=== PATIENT | female | born 1975 | race Caucasian/White ===

== ENCOUNTER 2016-07-06 14:42 | Emergency (ER) | payer OTHER ==
[~2016-07-06] VITALS: Ht 167.6 cm; Wt 66.0 kg
[~2016-07-06 14:42] MED LIST: ATARAX,VISTARIL50 MG PO; LIBRIUM; LIBRIUM25 MG PO; NAPROSYN500 MG PO; NEURONTIN100 MG PO; PERCOCET 5/31 TABLET PO; REMERON30 M2 PO; SUBOXONE 8 M1 TABLET SL; SUBOXONE 8 MG-1 EAC2 SL; THIAMINE HCL100 MG PO; TRAZODONE HCL50 MG PO; ZOFRAN ODT4 MG PO
[2016-07-06 15:52] LABS: HEMATOCRIT 41.7 % (36.0-46.0); MCH 34.4 PG (29.0-34.0); MCV 98.1 FL (83-99); MEAN PLAT.VOLUME 9.5 uM^3 (9.5-12.4); PLATELET COUNT 229 K/uL (156-360); RBC DIS.WIDTH-CV 13.9 % (11.8-14.6); RBC DIS.WIDTH-SD 49.2 % (39-53); RED BLOOD COUNT 4.25 M/uL (3.80-5.20); WHITE BLOOD COUNT 11.9 K/uL (4.1-10.2)
[2016-07-06 16:00] LABS: CHLORIDE 102 mEq/L (99-109); POTASSIUM 3.8 mEq/L (3.7-5.4); SODIUM 137 mEq/L (136-147)
[2016-07-06 16:01] LABS: MAGNESIUM 1.9 mg/dL (1.3-2.7)
[2016-07-06 16:02] LABS: GLUCOSE 124 mg/dL (70-99)
[2016-07-06 16:04] LABS: ANION GAP 9 MEQ/L (2-14)
[2016-07-06 16:06] LABS: GFR ESTIMATE (CALCULATED) > 59 mL/min/
[2016-07-06 16:07] LABS: UREA NITROGEN (BUN) 10 mg/dL (9-23)
[2016-07-06 18:40] LABS: TROP-I INTERPRETATION NEGATIVE; TROPONIN-I < 0.01 ng/mL (0.0-0.30)
[2016-07-06 20:19] VITALS: BP 126/61
== END 2016-07-06 20:20 | disposition home or self-care (01) ==
LOC: EME 14:42
PROVIDERS: Emergency Medicine
DX: R55 Syncope and collapse (principal); E86.0 Dehydration; F17.200 Nicotine dependence, unspecified, uncomplicated; Z88.6 Allergy status to analgesic agent
CPT/HCPCS: 70450; 72125; 73030; 80048; 83735; 84484; 85027; 93005; 99281; 99284; J7030

== ENCOUNTER 2017-04-25 14:20 | Observation (INO) | payer OTHER ==
[~2017-04-25] VITALS: Ht 165.1 cm; Wt 70.2 kg
[2017-04-25 14:37] LABS: BASOPHIL COUNT 0.1 K/uL (0-0.1); EOSINOPHIL (%) 2.6 % (0-5); EOSINOPHIL COUNT 0.2 K/uL (0-0.3); HEMATOCRIT 45.2 % (36.0-46.0); HEMOGLOBIN 15.9 G/DL (11.9-15.5); IMMATURE GRANULOCYTE (%) 0.2 % (0.0-0.7); MCH 33.9 PG (29.0-34.0); MCHC 35.2 G/DL (30.0-36.0); MCV 96.4 FL (83-99); MONOCYTE (%) 3.6 % (3-12); MONOCYTE COUNT 0.2 K/uL (0-0.8); NEUTROPHIL (%) 59.6 % (45-76); NEUTROPHIL COUNT 3.6 K/uL (1.8-6.4); PLATELET COUNT 290 K/uL (156-360); RBC DIS.WIDTH-CV 12.9 % (11.8-14.6); RBC DIS.WIDTH-SD 45.9 % (39-53); RED BLOOD COUNT 4.69 M/uL (3.80-5.20); WHITE BLOOD COUNT 6.1 K/uL (4.1-10.2)
[2017-04-25 14:49] LABS: APPEARANCE CLEAR ((CLEAR)); BILIRUBIN NEGATIVE; BLOOD NEGATIVE; COLOR YELLOW ((YELLOW)); GLUCOSE (STRIP) NEGATIVE; KETONES NEGATIVE; LEUKOCYTES NEGATIVE; NITRITE NEGATIVE; PROTEIN (STRIP) NEGATIVE; SPECIFIC GRAVITY 1.005 (1.000-1.030); UCUL ADDED? NO; UROBILINOGEN 0.2 MG/DL (0.2-1.0)
[2017-04-25 14:49] LABS: CHLORIDE 102 mEq/L (99-109); POTASSIUM 3.5 mEq/L (3.7-5.4); SODIUM 145 mEq/L (136-147)
[2017-04-25 14:50] LABS: MAGNESIUM 1.8 mg/dL (1.3-2.7)
[2017-04-25 14:52] LABS: GLUCOSE 106 mg/dL (70-99); TOTAL PROTEIN 6.8 g/dL (6.4-8.3)
[2017-04-25 14:54] LABS: TOTAL BILIRUBIN 0.7 mg/dL (0.0-1.0)
[2017-04-25 14:55] LABS: ALKALINE PHOSPHATASE 171 IU/L (3-129); SERUM ETHYL ALCOHOL 306 mg/dL
[2017-04-25 14:56] LABS: CREATININE 0.7 mg/dL (0.6-1.3); GFR ESTIMATE (CALCULATED) > 59 mL/min/
[2017-04-25 14:57] LABS: AST (GOT) 84 IU/L (2-34); UREA NITROGEN (BUN) 7 mg/dL (9-23)
[2017-04-25 14:59] LABS: AMPHETAMINE NEGATIVE (500 ng/mL); BARBITURATES NEGATIVE (200 ng/mL); BENZODIAZEPINES PRESUMPTIVE POSITIVE (150 ng/mL); BUPRENORPHINE NEGATIVE (10 ng/mL); COCAINE NEGATIVE (150 ng/mL); METHADONE NEGATIVE (200 ng/mL); METHAMPHETAMINE NEGATIVE (500 ng/mL); OPIATES (MORPHINE) NEGATIVE (100 ng/mL); OXYCODONE NEGATIVE (100 ng/mL); PHENCYCLIDINE NEGATIVE (25 ng/mL); PROPOXYPHENE NEGATIVE (300 ng/mL); THC CANNABINOIDS NEGATIVE (50 ng/mL); TRICYCLIC ANTIDEPRESSANTS NEGATIVE (300 ng/mL)
[2017-04-25 14:59] LABS: ALT (GPT) 112 IU/L (3-49); CREATINE KINASE 62 IU/L (1-294); TOTAL CK 62 IU/L (1-294)
[2017-04-25 15:07] LABS: QUANTITATIVE HCG < 4.0 MIU/ML
[2017-04-25 15:08] LABS: CK-MB 0.5 ng/mL (0.0-4.9); CKMB RELATIVE INDEX 0.8 (0.0-3.9)
[2017-04-25 15:23] LABS: BENZODIAZEPINES, URINE SCREEN Negative (200 ng/mL)
[2017-04-25] MEDS ORDERED: LIBRIUM25 MG PO (16:53)
[2017-04-25] MEDS ORDERED: ZOFRAN ODT4 MG PO (16:56)
[2017-04-25 22:24] LABS: BASE EXCESS 5.4 mEq/L (-3 to +3); BICARBONATE 29.9 mEq/L (22-26); CARBOXY HGB 2.7 % (0-5); METHEMOGLOBIN 0.8 % (0-1.5); PCO2 42 mm Hg (35-45); PO2 59 mm Hg (80-100); pH 7.46 (7.35-7.45)
[2017-04-25 22:25] LABS: COMMENTS - BLOOD GASES A+C+; SITE RR
[2017-04-25 22:27] LABS: DEVICE NC; O2 FLOW 3 L/MIN; TOTAL RESP RATE 20 resp/min
[2017-04-25] MEDS ORDERED: XANAX1 MG PO (23:01)
[2017-04-25] MEDS ORDERED: SUBOXONE 8 MG-1 EAC2 SL (23:01)
[2017-04-25] MEDS ORDERED: DRAMAMINE50 MG PO (23:02)
[2017-04-25] MEDS ORDERED: ADVIL200 MG PO (23:02)
[2017-04-25] MEDS ORDERED: PEPTO BISMOL240 ML PO (23:02)
[2017-04-26 17:22] VITALS: BP 157/91
[2017-04-26 20:00] VITALS: BP 152/98
[2017-04-26 23:51] VITALS: BP 129/80
[2017-04-27 04:15] VITALS: BP 116/75
[2017-04-27 05:09] LABS: HEMATOCRIT 41.8 % (36.0-46.0); HEMOGLOBIN 14.1 G/DL (11.9-15.5); MCH 32.9 PG (29.0-34.0); MCHC 33.7 G/DL (30.0-36.0); MCV 97.4 FL (83-99); PLATELET COUNT 226 K/uL (156-360); RBC DIS.WIDTH-CV 12.5 % (11.8-14.6); RED BLOOD COUNT 4.29 M/uL (3.80-5.20)
[2017-04-27 05:35] LABS: CHLORIDE 101 MEQ/L (99-109); CREATININE 0.6 MG/DL (0.6-1.3); GFR ESTIMATE (CALCULATED) > 59 mL/min/; GLUCOSE 157 mg/dL (70-99); SODIUM 140 MEQ/L (136-147); UREA NITROGEN (BUN) 15 mg/dL (9-23)
[2017-04-27 05:39] LABS: POTASSIUM 4.4 MEQ/L (3.7-5.4)
[2017-04-27 09:00] VITALS: BP 141/91
[2017-04-27 11:52] VITALS: BP 145/91
[2017-04-27] MEDS ORDERED: THERAGRAN1 TABLET PO (13:53)
[2017-04-27] MEDS ORDERED: FOLIC ACID1 MG PO (13:54)
[2017-04-27] MEDS ORDERED: PREDNISONE10 MG PO (13:56)
[2017-04-27] MEDS ORDERED: LIBRIUM25 MG PO (13:57)
== END 2017-04-27 15:22 | disposition home or self-care (01) ==
LOC: EME 14:20 → 5WEST 04-26 00:40 → EDOF 04-26 00:40 → ENRESERV 04-26 00:42 → CANRESERV 04-26 11:02 → ENRESERV 04-26 11:02 → 5WEST 04-26 16:58
PROVIDERS: Emergency Medicine; Hospitalist; Internal Medicine
DX: F10.239 Alcohol dependence with withdrawal, unspecified (principal); F10.229 Alcohol dependence with intoxication, unspecified; Y90.8 Blood alcohol level of 240 mg/100 ml or more; R09.02 Hypoxemia; F11.11 Opioid abuse, in remission; F17.210 Nicotine dependence, cigarettes, uncomplicated; Z86.69 Personal history of other diseases of the nervous system and sense organs; Z86.73 Personal history of transient ischemic attack (TIA), and cerebral infarction without residual deficits; Z90.49 Acquired absence of other specified parts of digestive tract; Z90.710 Acquired absence of both cervix and uterus; Z88.5 Allergy status to narcotic agent; Z88.8 Allergy status to other drugs, medicaments and biological substances; Z91.018 Allergy to other foods
CPT/HCPCS: 36600; 71045; 71275; 80048; 80053; 81003; 82550; 82553; 82803; 83605; 83735; 84702; 84999; 85025; 85027; 87040; 93005; 94640; 99281; 99285; G0378; G0480; J0574; J1650; J2060; J2405; J2920; J2930; J7030

== ENCOUNTER 2017-08-05 23:02 | Emergency (ER) | payer OTHER ==
[~2017-08-05] VITALS: Ht 165.1 cm; Wt 65.9 kg
[~2017-08-05 23:02] MED LIST changes: +ADVIL200 MG PO; +DRAMAMINE50 MG PO; +FOLIC ACID1 MG PO; +PEPTO BISMOL240 ML PO; +PREDNISONE10 MG PO; +THERAGRAN1 TABLET PO; +XANAX1 MG PO
[2017-08-06 01:55] LABS: HEMATOCRIT 44.5 % (36.0-46.0); HEMOGLOBIN 16.1 G/DL (11.9-15.5); MCH 36.1 PG (29.0-34.0); MCHC 36.2 G/DL (30.0-36.0); MCV 99.8 FL (83-99); PLATELET COUNT 354 K/uL (156-360); RBC DIS.WIDTH-CV 14.1 % (11.8-14.6); RBC DIS.WIDTH-SD 52.1 % (39-53); RED BLOOD COUNT 4.46 M/uL (3.80-5.20); WHITE BLOOD COUNT 15.8 K/uL (4.1-10.2)
[2017-08-06 02:04] LABS: ALBUMIN 4.4 g/dL (3.2-4.8)
[2017-08-06 02:05] LABS: CHLORIDE 98 mEq/L (99-109); POTASSIUM 3.3 mEq/L (3.7-5.4); SODIUM 143 mEq/L (136-147)
[2017-08-06 02:07] LABS: GLUCOSE 144 mg/dL (70-99); TOTAL PROTEIN 7.9 g/dL (6.4-8.3)
[2017-08-06 02:10] LABS: ALKALINE PHOSPHATASE 237 IU/L (3-129)
[2017-08-06 02:11] LABS: CREATININE 0.7 mg/dL (0.6-1.3); GFR ESTIMATE (CALCULATED) > 59 mL/min/
[2017-08-06 02:12] LABS: AST (GOT) 125 IU/L (2-34); UREA NITROGEN (BUN) 9 mg/dL (9-23)
[2017-08-06 02:14] LABS: ALT (GPT) 32 IU/L (3-49)
[2017-08-06 02:19] LABS: QUANTITATIVE HCG < 4.0 MIU/ML
[2017-08-06] MEDS ORDERED: ATIVAN2 MG PO (03:01)
[2017-08-06 03:29] LABS: SERUM ETHYL ALCOHOL 306 mg/dL
[2017-08-06 03:32] LABS: LIPASE 11 U/L (1.0-51.0)
[2017-08-06 06:10] VITALS: BP 96/50
== END 2017-08-06 06:37 | disposition home or self-care (01) ==
LOC: EME 23:02
DX: F10.239 Alcohol dependence with withdrawal, unspecified (principal); R25.1 Tremor, unspecified; E86.0 Dehydration; R11.2 Nausea with vomiting, unspecified; R53.1 Weakness; F32.9 Major depressive disorder, single episode, unspecified; F17.200 Nicotine dependence, unspecified, uncomplicated; Z86.73 Personal history of transient ischemic attack (TIA), and cerebral infarction without residual deficits; Z90.49 Acquired absence of other specified parts of digestive tract; Z88.5 Allergy status to narcotic agent; Z88.8 Allergy status to other drugs, medicaments and biological substances
CPT/HCPCS: 80053; 81003; 83690; 84702; 85027; 99281; 99285; G0480; J0780; J2060; J3411; J3475; J7030; J7042; J7050

== ENCOUNTER → 2017-08-09 21:10 | Emergency (ER) | payer OTHER ==
[~2017-08-09] VITALS: Ht 165.1 cm; Wt 68.4 kg
[~2017-08-09 21:10] MED LIST changes: +ATIVAN2 MG PO
[2017-08-09 21:12] VITALS: BP 133/90
== END | disposition left against medical advice (07) ==
LOC: EME 21:10
DX: Z53.21 Procedure and treatment not carried out due to patient leaving prior to being seen by health care provider (principal)
CPT/HCPCS: 81003

== ENCOUNTER 2017-10-14 17:55 | Emergency (ER) | payer OTHER ==
[~2017-10-14] VITALS: Ht 165.1 cm; Wt 77.3 kg
[2017-10-14 18:48] LABS: BASOPHIL (%) 0.7 % (0-1); BASOPHIL COUNT 0.1 K/uL (0-0.1); EOSINOPHIL (%) 2.1 % (0-5); EOSINOPHIL COUNT 0.2 K/uL (0-0.3); IMMATURE GRANULOCYTE (%) 0.4 % (0.0-0.7); LYMPHOCYTE (%) 19.9 % (15-42); LYMPHOCYTE COUNT 1.4 K/uL (1.0-2.8); MCH 34.4 PG (29.0-34.0); MCV 98.3 FL (83-99); MONOCYTE (%) 5.6 % (3-12); MONOCYTE COUNT 0.4 K/uL (0-0.8); NEUTROPHIL (%) 71.3 % (45-76); NEUTROPHIL COUNT 5.1 K/uL (1.8-6.4); PLATELET COUNT 258 K/uL (156-360); RBC DIS.WIDTH-CV 11.8 % (11.8-14.6); RBC DIS.WIDTH-SD 42.8 % (39-53); RED BLOOD COUNT 4.07 M/uL (3.80-5.20); WHITE BLOOD COUNT 7.1 K/uL (4.1-10.2)
[2017-10-14 19:04] LABS: ALBUMIN 4.1 g/dL (3.2-4.8); CHLORIDE 106 mEq/L (99-109); POTASSIUM 3.6 mEq/L (3.7-5.4); SODIUM 137 mEq/L (136-147)
[2017-10-14 19:07] LABS: GLUCOSE 84 mg/dL (70-99)
[2017-10-14 19:09] LABS: TOTAL BILIRUBIN 0.6 mg/dL (0.0-1.0)
[2017-10-14 19:10] LABS: ALKALINE PHOSPHATASE 128 IU/L (3-129); CREATININE 0.7 mg/dL (0.6-1.3); GFR ESTIMATE (CALCULATED) > 59 mL/min/; SERUM ETHYL ALCOHOL < 10 mg/dL
[2017-10-14 19:12] LABS: AST (GOT) 66 IU/L (2-34); UREA NITROGEN (BUN) 9 mg/dL (9-23)
[2017-10-14 19:13] LABS: ALT (GPT) 66 IU/L (3-49); CREATINE KINASE 69 IU/L (1-294); TOTAL CK 69 IU/L (1-294)
[2017-10-14 19:20] LABS: QUANTITATIVE HCG < 4.0 MIU/ML
[2017-10-14 19:21] LABS: CK-MB 0.9 ng/mL (0.0-4.9); CKMB RELATIVE INDEX 1.3 (0.0-3.9)
[2017-10-14] MEDS ORDERED: ATIVAN1 MG PO (20:31)
[2017-10-14 21:46] VITALS: BP 121/78
== END 2017-10-14 21:48 | disposition home or self-care (01) ==
LOC: EME 17:55
PROVIDERS: Emergency Medicine
DX: R56.9 Unspecified convulsions (principal); F10.10 Alcohol abuse, uncomplicated; Z86.73 Personal history of transient ischemic attack (TIA), and cerebral infarction without residual deficits; Z88.5 Allergy status to narcotic agent; Z88.8 Allergy status to other drugs, medicaments and biological substances; F17.200 Nicotine dependence, unspecified, uncomplicated
CPT/HCPCS: 80053; 81003; 82550; 82553; 84702; 85025; 99281; 99284; G0480